=== PATIENT | female | born 1935 | race Hispanic/Latino ===

== ENCOUNTER 2018-01-23 07:51 | Day surgery (SDC) | payer MEDICARE ==
[~2018-01-23] VITALS: Ht 152.4 cm; Wt 51.7 kg
[~2018-01-23 07:51] MED LIST: ATOR10 PO; LEVO25TA9 PO; LISI1TAB11 PO
[2018-01-23 08:21] VITALS: BP 141/57
[2018-01-23 08:44] LABS: INR 0.93 (0.85-1.15); PARTIAL THROMBOPLASTIN TIME 31.7 SEC (26.3-35.5); PROTHROMBIN TIME 9.8 SEC (9.6-11.6)
[2018-01-23] MEDS ORDERED: SODIUM CHLORIDE 0.9% 1000ML 1,000 ML IV ONE (09:22)
[2018-01-23] MEDS ORDERED: FENTANYL CITRATE PF 50 MCG/1 ML 2ML VIAL ONE (11:27)
[2018-01-23] MEDS ORDERED: MIDAZOLAM HCL 1 MG/ML 2ML VIAL ONE (11:28)
[2018-01-23 12:17] VITALS: BP 134/48
[2018-01-23 12:48] VITALS: BP 105/54
[2018-01-23 13:36] VITALS: BP 143/57
[2018-01-23] MEDS ORDERED: LIDOCAINE HCL MPF 1% 5ML VIAL ONE (14:41)
== END 2018-01-23 14:00 | disposition home or self-care (01) ==
LOC: DAH 07:51 → RAH 07:51 → EDSTATUS 08:00 → RAH 14:00
PROVIDERS: ATTEND Family Medicine
DX: C34.12 Malignant neoplasm of upper lobe, left bronchus or lung (principal); E55.9 Vitamin D deficiency, unspecified; I10 Essential (primary) hypertension; I70.209 Unspecified atherosclerosis of native arteries of extremities, unspecified extremity; J43.9 Emphysema, unspecified; E03.9 Hypothyroidism, unspecified; Z79.899 Other long term (current) drug therapy; Z87.891 Personal history of nicotine dependence; Z98.890 Other specified postprocedural states; Z80.8 Family history of malignant neoplasm of other organs or systems; Z82.0 Family history of epilepsy and other diseases of the nervous system; Z88.0 Allergy status to penicillin; Z88.8 Allergy status to other drugs, medicaments and biological substances; Z86.79 Personal history of other diseases of the circulatory system
CPT/HCPCS: 32405; 36415; 77012; 85610; 85730; 88305; 88341; 88342; J3010; J3490; J7030; 99152; J2250

== ENCOUNTER → 2018-03-14 | Outpatient (CLI) | payer MEDICARE | END | disposition home or self-care (01) | LOC: SHCH 12:16 | PROVIDERS: ATTEND Internal Medicine Cardiovascular Disease | DX: I51.7 Cardiomegaly (principal); M19.90 Unspecified osteoarthritis, unspecified site | CPT/HCPCS: 93306 ==

== ENCOUNTER 2018-08-19 18:16 | Inpatient (IN) | payer MEDICARE | END 2018-08-19 23:23 | disposition left against medical advice (07) | LOC: EDH 18:16 → EDHIP 21:32 ==

== ENCOUNTER 2020-01-04 11:16 | Inpatient (IN) | payer MEDICARE, OTHER ==
[~2020-01-04] VITALS: Ht 154.9 cm; Wt 45.8 kg
[~2020-01-04 11:16] MED LIST changes: -LISI1TAB11 PO; +LISI1TAB51 PO
[2020-01-04 12:13] LABS: BASOPHILS % (AUTO) 0.3 % (0.0-5.0); EOSINOPHILS % (AUTO) 0.1 % (0.0-8.0); HEMATOCRIT 35.2 % (36-48); LYMPHOCYTES % (AUTO) 5.8 % (21.0-51.0); MEAN CORPUSCULAR HEMOGLOBIN 31.3 pg (27.0-33.0); MEAN CORPUSCULAR HGB CONC 34.7 g/dL (32.0-36.0); MEAN CORPUSCULAR VOLUME 90.3 fL (79-99); MONOCYTES % (AUTO) 3.1 % (3.0-13.0); NEUTROPHILS % (AUTO) 89.2 % (40.0-77.0); PLATELET COUNT (AUTO) 268 K/uL (130-400); RED CELL DISTRIBUTION WIDTH 12.4 % (11.0-15.5); WHITE BLOOD COUNT (AUTO) 11.1 K/uL (4.8-10.8)
[2020-01-04 12:14] LABS: ABG BASE EXCESS -0.8 mmol/L (-2.0-3.0); ABG HCO3 21.8 mmol/L (21.0-28.0); ABG OXYGEN SATURATION 74.5 % (95.0-99.0); ABG PCO2 31 mmHg (32-45)
[2020-01-04 12:25] LABS: CREATININE 1.2 mg/dL (0.5-1.5); POTASSIUM 3.8 mmol/L (3.5-5.1)
[2020-01-04 12:27] LABS: INR 0.95 (0.85-1.15); PARTIAL THROMBOPLASTIN TIME 29.4 SEC (26.3-35.5); PROTHROMBIN TIME 10.3 SEC (9.6-11.6)
[2020-01-04 12:29] LABS: ALBUMIN 2.8 g/dL (3.5-5.0); BILIRUBIN,TOTAL 0.9 mg/dL (0.2-1.0); TOTAL PROTEIN, SERUM 6.7 g/dL (6.0-8.3)
[2020-01-04 12:37] LABS: B-TYPE NATRIURETIC PEPTIDE 151 pg/mL (0-100)
[2020-01-04] MEDS: FUROSEMIDE 10 MG/ML 4ML VIAL IV SCH (14:00)
[2020-01-04] MEDS ORDERED: ONDANSETRON HCL 4 MG/2 ML VIAL IVP PRN (14:00)
[2020-01-04] MEDS ORDERED: HYDRALAZINE HCL 20 MG/ML VIAL IV PRN (14:00)
[2020-01-04] MEDS ORDERED: MAGNESIUM 2GM PREMIX 50ML 50 ML IV PRN (14:00)
[2020-01-04] MEDS ORDERED: ACETAMINOPHEN-CODEINE 300/30MG TAB PO PRN (14:00)
[2020-01-04] MEDS ORDERED: GLUCAGON 1MG KIT 1 MG ML IM PRN (14:00)
[2020-01-04] MEDS ORDERED: ALBUTEROL INHALER 90MCG/INH IH PRN (14:00)
[2020-01-04] MEDS ORDERED: FUROSEMIDE 10 MG/ML 4ML VIAL ONE (14:37)
[2020-01-04] MEDS ORDERED: FAMOTIDINE 20MG TAB 20 MG TAB ONE (14:37)
[2020-01-04 15:50] VITALS: BP 141/67
[2020-01-04] MEDS: INSULIN HUMULIN R 100 UNIT/ML 3ML SQ SCH ×2 (16:30→20:19)
[2020-01-04 20:23] VITALS: BP 108/50
[2020-01-04] MEDS: FAMOTIDINE 20MG TAB 20 MG TAB PO SCH (20:32)
[2020-01-04] MEDS ORDERED: ENOXAPARIN SODIUM 30 MG/0.3 ML SQ SCH (21:00)
[2020-01-05] VITALS (7 sets, daily range): BP systolic 113–127; BP diastolic 54–66
[2020-01-05 04:51] LABS: BASOPHILS % (AUTO) 0.2 % (0.0-5.0); EOSINOPHILS % (AUTO) 0.2 % (0.0-8.0); HEMATOCRIT 34.6 % (36-48); LYMPHOCYTES % (AUTO) 7.4 % (21.0-51.0); MEAN CORPUSCULAR HEMOGLOBIN 31.6 pg (27.0-33.0); MEAN CORPUSCULAR VOLUME 90.3 fL (79-99); MONOCYTES % (AUTO) 3.4 % (3.0-13.0); NEUTROPHILS % (AUTO) 86.9 % (40.0-77.0); PLATELET COUNT (AUTO) 275 K/uL (130-400); RED BLOOD CELL COUNT(AUTO) 3.83 MIL/uL (4.00-5.50); RED CELL DISTRIBUTION WIDTH 12.2 % (11.0-15.5); WHITE BLOOD COUNT (AUTO) 9.3 K/uL (4.8-10.8)
[2020-01-05 05:10] LABS: ALBUMIN 2.7 g/dL (3.5-5.0); BILIRUBIN,DIRECT 0.3 mg/dL (0.0-0.3); BILIRUBIN,TOTAL 0.9 mg/dL (0.2-1.0); CREATININE 1.3 mg/dL (0.5-1.5); PHOSPHORUS 3.5 mg/dL (2.5-4.9); POTASSIUM 3.4 mmol/L (3.5-5.1); TOTAL PROTEIN, SERUM 6.9 g/dL (6.0-8.3)
[2020-01-05 05:23] LABS: CRP QUANTITATIVE 280.2 mg/L (0.00-9.0)
[2020-01-05] MEDS: FUROSEMIDE 10 MG/ML 4ML VIAL IV SCH ×3 (06:30→16:06)
[2020-01-05] MEDS: INSULIN HUMULIN R 100 UNIT/ML 3ML SQ SCH ×4 (06:35→20:17)
[2020-01-05] MEDS ORDERED: PHARMACY COMMUNICATION**REMDESIVIR MISC SCH (07:45)
[2020-01-05] MEDS: FAMOTIDINE 20MG TAB 20 MG TAB PO SCH ×2 (08:33→20:13)
[2020-01-05] MEDS: DEXAMETHASONE SOD PHOSPHATE 4 MG/ML 1ML VIAL IVP SCH (08:33)
[2020-01-05] MEDS: ENOXAPARIN SODIUM 40 MG/0.4 ML SYRINGE SQ SCH ×2 (08:34→20:13)
[2020-01-05] MEDS ORDERED: SODIUM CHLORIDE 0.9% 100 ML IV ONE (13:02)
--- NOTE | 2020-01-05 17:21 | NUR ---
cm note spoke to pts son, zachary tillman, states pt resides alone at home. is independent with adls/ambulation. no dme. no home services. states pt has been weaker lately, and may need a walker, but he states plan is for dc home, he can make arrangements for him to stay with pt until stable, and is open to rehab if Md recommends. Addendum: 01/05/20 at 1727 by SHANKAR CHILDERS CM Amended: Links added.
[2020-01-05] MEDS ORDERED: SODIUM CHLORIDE 0.9% 250 ML IV ONE (20:05)
[2020-01-05] MEDS ORDERED: LIDOCAINE HCL-MPF 1% 2ML VIAL IV PRN (20:15)
[2020-01-05] MEDS ORDERED: POTASSIUM CHLORIDE 20MEQ/100ML 100 ML IV PRN (20:15)
[2020-01-05] MEDS ORDERED: POTASSIUM CHLORIDE 20 MEQ ERTAB PO PRN (20:15)
[2020-01-06] MEDS: FUROSEMIDE 10 MG/ML 4ML VIAL IV SCH (01:16)
[2020-01-06 03:00] VITALS: BP 134/72
[2020-01-06] MEDS: INSULIN HUMULIN R 100 UNIT/ML 3ML SQ SCH ×4 (05:57→19:54)
[2020-01-06] MEDS: POTASSIUM CHLORIDE 10% ELIXIR 20 MEQ/15 ML UDCUP PO PRN (05:58)
[2020-01-06 06:31] LABS: BASOPHILS % (AUTO) 0.2 % (0.0-5.0); HEMATOCRIT 36.5 % (36-48); LYMPHOCYTES % (AUTO) 6.7 % (21.0-51.0); MEAN CORPUSCULAR HEMOGLOBIN 31.5 pg (27.0-33.0); MEAN CORPUSCULAR HGB CONC 35.1 g/dL (32.0-36.0); MEAN CORPUSCULAR VOLUME 89.9 fL (79-99); MONOCYTES % (AUTO) 3.3 % (3.0-13.0); NEUTROPHILS % (AUTO) 88.2 % (40.0-77.0); PLATELET COUNT (AUTO) 350 K/uL (130-400); RED BLOOD CELL COUNT(AUTO) 4.06 MIL/uL (4.00-5.50); RED CELL DISTRIBUTION WIDTH 11.9 % (11.0-15.5); WHITE BLOOD COUNT (AUTO) 8.5 K/uL (4.8-10.8)
[2020-01-06 07:12] LABS: BILIRUBIN,TOTAL 0.8 mg/dL (0.2-1.0); CREATININE 1.4 mg/dL (0.5-1.5); POTASSIUM 4.3 mmol/L (3.5-5.1); TOTAL PROTEIN, SERUM 7.5 g/dL (6.0-8.3)
[2020-01-06 08:09] VITALS: BP 136/73
[2020-01-06 08:18] LABS: ABG HCO3 23.8 mmol/L (21.0-28.0); ABG OXYGEN SATURATION 96.8 % (95.0-99.0); ABG PCO2 33 mmHg (32-45)
[2020-01-06] MEDS: FAMOTIDINE 20MG TAB 20 MG TAB PO SCH ×2 (08:27→19:57)
[2020-01-06] MEDS: DEXAMETHASONE SOD PHOSPHATE 4 MG/ML 1ML VIAL IVP SCH (08:27)
[2020-01-06] MEDS: ENOXAPARIN SODIUM 40 MG/0.4 ML SYRINGE SQ SCH ×2 (08:28→19:57)
--- NOTE | 2020-01-06 09:40 | NUR ---
MARTHA SONOGRAPHER AT BEDSIDE, DISCUSSION W/ PATIENT ABOUT CODE STATUS, PT. STATES DOES NOT WANT TO BE CODED, DNR INITIATED AND SIGNED BY PATIENT ORDER PLACED MARTHA CALLED SON TO MAKE AWARE
[2020-01-06 11:58] VITALS: BP 102/58
--- NOTE | 2020-01-06 14:19 | NUR ---
PHYSICAL THERAPY HERE STOOD PATIENT AND GOT UP TO CHAIR, PT STOOD WELL ON HER OWN AND MOVED TO CHAIR. SATS 99%
--- NOTE | 2020-01-06 14:51 | NUR ---
PATIENT ASKED TO GO BACK TO BED, ASSISTED BACK TO BED, LINENS WERE CHANGED BY SOFTWARE TOOLS ENGINEER WHILE UP TO CHAIR. PATIENT TOLERATED WELL.
[2020-01-06 15:46] VITALS: BP 117/64
[2020-01-06 19:40] VITALS: BP 131/50
[2020-01-06] MEDS: ALPRAZOLAM 0.25 MG TABLET PO PRN (22:00)
[2020-01-06 23:43] VITALS: BP 119/60
[2020-01-07 03:28] VITALS: BP 129/74
[2020-01-07 05:10] LABS: BASOPHILS % (AUTO) 0.3 % (0.0-5.0); HEMATOCRIT 36.5 % (36-48); LYMPHOCYTES % (AUTO) 6.6 % (21.0-51.0); MEAN CORPUSCULAR HEMOGLOBIN 30.8 pg (27.0-33.0); MEAN CORPUSCULAR VOLUME 90.8 fL (79-99); MONOCYTES % (AUTO) 2.4 % (3.0-13.0); NEUTROPHILS % (AUTO) 88.7 % (40.0-77.0); PLATELET COUNT (AUTO) 403 K/uL (130-400); RED BLOOD CELL COUNT(AUTO) 4.02 MIL/uL (4.00-5.50); RED CELL DISTRIBUTION WIDTH 11.9 % (11.0-15.5); WHITE BLOOD COUNT (AUTO) 11.2 K/uL (4.8-10.8)
[2020-01-07 05:39] LABS: ALBUMIN 2.8 g/dL (3.5-5.0); BILIRUBIN,TOTAL 0.7 mg/dL (0.2-1.0); CREATININE 1.3 mg/dL (0.5-1.5); MAGNESIUM 2.3 mg/dL (1.80-2.40); PHOSPHORUS 3.7 mg/dL (2.5-4.9); POTASSIUM 3.9 mmol/L (3.5-5.1); TOTAL PROTEIN, SERUM 7.1 g/dL (6.0-8.3)
[2020-01-07] MEDS: INSULIN HUMULIN R 100 UNIT/ML 3ML SQ SCH ×4 (06:30→20:00)
[2020-01-07] MEDS: FAMOTIDINE 20MG TAB 20 MG TAB PO SCH ×2 (08:13→20:16)
[2020-01-07] MEDS: DEXAMETHASONE SOD PHOSPHATE 4 MG/ML 1ML VIAL IVP SCH (08:13)
[2020-01-07] MEDS: ENOXAPARIN SODIUM 40 MG/0.4 ML SYRINGE SQ SCH ×2 (08:13→20:16)
[2020-01-07 09:59] VITALS: BP 90/43
[2020-01-07 12:08] VITALS: BP 130/55
[2020-01-07 17:25] VITALS: BP_SYST 107; BP_SYST 117; BP_DIAS 62; BP_DIAS 66
[2020-01-07 19:51] VITALS: BP 102/64
[2020-01-07 23:38] VITALS: BP 124/71
[2020-01-08 04:26] VITALS: BP 124/46
[2020-01-08 05:25] LABS: BASOPHILS % (AUTO) 0.1 % (0.0-5.0); EOSINOPHILS % (AUTO) 0.3 % (0.0-8.0); HEMATOCRIT 36.5 % (36-48); LYMPHOCYTES % (AUTO) 5.9 % (21.0-51.0); MEAN CORPUSCULAR HEMOGLOBIN 30.8 pg (27.0-33.0); MEAN CORPUSCULAR HGB CONC 33.7 g/dL (32.0-36.0); MEAN CORPUSCULAR VOLUME 91.5 fL (79-99); MONOCYTES % (AUTO) 1.5 % (3.0-13.0); NEUTROPHILS % (AUTO) 90.6 % (40.0-77.0); PLATELET COUNT (AUTO) 405 K/uL (130-400); RED BLOOD CELL COUNT(AUTO) 3.99 MIL/uL (4.00-5.50); RED CELL DISTRIBUTION WIDTH 11.9 % (11.0-15.5); WHITE BLOOD COUNT (AUTO) 10.1 K/uL (4.8-10.8)
[2020-01-08] MEDS: INSULIN HUMULIN R 100 UNIT/ML 3ML SQ SCH ×4 (05:28→20:36)
[2020-01-08 05:50] LABS: ALBUMIN 2.9 g/dL (3.5-5.0); BILIRUBIN,TOTAL 0.8 mg/dL (0.2-1.0); CREATININE 1.2 mg/dL (0.5-1.5); MAGNESIUM 2.3 mg/dL (1.80-2.40); POTASSIUM 3.7 mmol/L (3.5-5.1)
[2020-01-08] MEDS: ENOXAPARIN SODIUM 40 MG/0.4 ML SYRINGE SQ SCH ×2 (08:20→20:36)
[2020-01-08] MEDS: DEXAMETHASONE SOD PHOSPHATE 4 MG/ML 1ML VIAL IVP SCH (08:20)
[2020-01-08] MEDS: FAMOTIDINE 20MG TAB 20 MG TAB PO SCH ×2 (08:20→20:36)
[2020-01-08 08:23] LABS: ABG BASE EXCESS 1.5 mmol/L (-2.0-3.0); ABG HCO3 24.6 mmol/L (21.0-28.0); ABG OXYGEN SATURATION 88.1 % (95.0-99.0); ABG PCO2 35 mmHg (32-45)
[2020-01-08 09:43] VITALS: BP 120/60
[2020-01-08 12:40] VITALS: BP 132/65
--- NOTE | 2020-01-08 12:55 | NUR ---
DC PLAN VISITED WITH PATIENT. SPOKE TO PATIENT REGARDING DC PLAN. GAVE OPTION OF SNF OR [facility] SAID NO ONLY WANTS TO GO HOME. CURRENTLY THE O2 INCREASED TO 10L NRB. Addendum: 01/08/20 at 1314 by JANY SELLERS RN CM Amended: Links added.
[2020-01-08] MEDS ORDERED: FUROSEMIDE 10 MG/ML 2ML VIAL IV SCH (14:00)
[2020-01-08] MEDS ORDERED: IOHEXOL-350 75 ML VIAL IV ONE (14:52)
[2020-01-08 16:50] VITALS: BP 124/69
[2020-01-08 20:11] VITALS: BP 115/62
[2020-01-08] MEDS: ATORVASTATIN CALCIUM 10 MG TABLET PO SCH (20:36)
[2020-01-08] MEDS: ACETYLCYSTEINE 600 MG CAPSULE PO SCH (20:36)
[2020-01-08 23:39] VITALS: BP 110/57
[2020-01-09 03:36] VITALS: BP 126/66
[2020-01-09] MEDS: AZTREONAM 1 GM VIAL IVP SCH ×3 (04:00→19:26)
[2020-01-09 04:59] LABS: BASOPHILS % (AUTO) 0.2 % (0.0-5.0); EOSINOPHILS % (AUTO) 0.2 % (0.0-8.0); HEMATOCRIT 36.1 % (36-48); LYMPHOCYTES % (AUTO) 4.1 % (21.0-51.0); MEAN CORPUSCULAR HEMOGLOBIN 30.9 pg (27.0-33.0); MEAN CORPUSCULAR HGB CONC 34.1 g/dL (32.0-36.0); MEAN CORPUSCULAR VOLUME 90.7 fL (79-99); MONOCYTES % (AUTO) 0.9 % (3.0-13.0); NEUTROPHILS % (AUTO) 92.6 % (40.0-77.0); PLATELET COUNT (AUTO) 392 K/uL (130-400); RED BLOOD CELL COUNT(AUTO) 3.98 MIL/uL (4.00-5.50); RED CELL DISTRIBUTION WIDTH 11.8 % (11.0-15.5); WHITE BLOOD COUNT (AUTO) 11.6 K/uL (4.8-10.8)
[2020-01-09 05:36] LABS: B-TYPE NATRIURETIC PEPTIDE 125 pg/mL (0-100)
[2020-01-09 05:57] LABS: ALBUMIN 2.8 g/dL (3.5-5.0); BILIRUBIN,TOTAL 0.8 mg/dL (0.2-1.0); CREATININE 1.2 mg/dL (0.5-1.5); MAGNESIUM 2.3 mg/dL (1.80-2.40); POTASSIUM 3.5 mmol/L (3.5-5.1); TOTAL PROTEIN, SERUM 7.2 g/dL (6.0-8.3)
[2020-01-09] MEDS: INSULIN HUMULIN R 100 UNIT/ML 3ML SQ SCH ×4 (06:01→20:19)
[2020-01-09] MEDS: LEVOTHYROXINE 25 MCG TABLET PO SCH (06:39)
[2020-01-09] MEDS: POTASSIUM CHLORIDE 10% ELIXIR 20 MEQ/15 ML UDCUP PO PRN (06:39)
[2020-01-09 06:54] LABS: ABG BASE EXCESS -8.2 mmol/L (-2.0-3.0); ABG HCO3 14.2 mmol/L (21.0-28.0); ABG OXYGEN SATURATION 90.1 % (95.0-99.0); ABG PCO2 23 mmHg (32-45)
[2020-01-09] MEDS: ENOXAPARIN SODIUM 40 MG/0.4 ML SYRINGE SQ SCH ×2 (08:25→20:19)
[2020-01-09] MEDS: DEXAMETHASONE SOD PHOSPHATE 4 MG/ML 1ML VIAL IVP SCH (08:25)
[2020-01-09] MEDS: FAMOTIDINE 20MG TAB 20 MG TAB PO SCH ×2 (08:25→20:19)
[2020-01-09] MEDS: ACETYLCYSTEINE 600 MG CAPSULE PO SCH ×2 (08:25→20:19)
[2020-01-09 08:48] VITALS: BP 117/77
[2020-01-09 12:04] VITALS: BP 142/57
[2020-01-09 16:29] VITALS: BP 108/54
[2020-01-09] MEDS ORDERED: VANCOMYCIN PROTOCOL PER PHARMACY IV SCH (19:00)
[2020-01-09] MEDS ORDERED: AZITHROMYCIN 500MG+NS 250ML 250 ML IV SCH (19:00)
[2020-01-09] MEDS ORDERED: COMPOUND IV REFRIGERATED 1 EACH IVSOLN MISC PRN (19:30)
[2020-01-09] MEDS ORDERED: VANCOMYCIN 1.25 GM in SODIUM CHLORIDE 0.9% 250 ML IV ONE (19:30)
[2020-01-09] MEDS ORDERED: AZTREONAM 2 GM VIAL IVP ONE (20:00)
[2020-01-09] MEDS: ATORVASTATIN CALCIUM 10 MG TABLET PO SCH (20:19)
[2020-01-09 20:59] VITALS: BP 127/63
[2020-01-09 23:15] VITALS: BP 136/68
[2020-01-10] MEDS: AZTREONAM 1 GM VIAL IVP SCH ×3 (03:03→20:54)
[2020-01-10 03:50] VITALS: BP 127/66
[2020-01-10 04:53] LABS: BASOPHILS % (AUTO) 0.2 % (0.0-5.0); EOSINOPHILS % (AUTO) 0.2 % (0.0-8.0); HEMATOCRIT 35.8 % (36-48); LYMPHOCYTES % (AUTO) 5.4 % (21.0-51.0); MEAN CORPUSCULAR HEMOGLOBIN 30.8 pg (27.0-33.0); MEAN CORPUSCULAR HGB CONC 33.5 g/dL (32.0-36.0); MONOCYTES % (AUTO) 1.7 % (3.0-13.0); NEUTROPHILS % (AUTO) 89.9 % (40.0-77.0); PLATELET COUNT (AUTO) 397 K/uL (130-400); RED BLOOD CELL COUNT(AUTO) 3.89 MIL/uL (4.00-5.50); RED CELL DISTRIBUTION WIDTH 12.1 % (11.0-15.5); WHITE BLOOD COUNT (AUTO) 12.5 K/uL (4.8-10.8)
[2020-01-10 05:09] LABS: CREATININE 1.3 mg/dL (0.5-1.5); MAGNESIUM 2.5 mg/dL (1.80-2.40)
[2020-01-10] MEDS: DEXTROSE 50%-WATER 50 ML DISP.SYRIN IV PRN (05:12)
[2020-01-10 05:14] LABS: B-TYPE NATRIURETIC PEPTIDE 88 pg/mL (0-100)
[2020-01-10] MEDS: INSULIN HUMULIN R 100 UNIT/ML 3ML SQ SCH ×4 (05:37→20:56)
[2020-01-10] MEDS: LEVOTHYROXINE 25 MCG TABLET PO SCH (05:37)
[2020-01-10] MEDS: ACETYLCYSTEINE 600 MG CAPSULE PO SCH (09:31)
[2020-01-10] MEDS: DEXAMETHASONE SOD PHOSPHATE 4 MG/ML 1ML VIAL IVP SCH (09:31)
[2020-01-10] MEDS: FAMOTIDINE 20MG TAB 20 MG TAB PO SCH ×2 (09:31→20:54)
[2020-01-10] MEDS: ENOXAPARIN SODIUM 40 MG/0.4 ML SYRINGE SQ SCH ×2 (09:32→20:55)
[2020-01-10 10:08] VITALS: BP 134/65
[2020-01-10] MEDS ORDERED: VANCOMYCIN 1GM+NS 250ML IV SCH (17:00)
[2020-01-10 17:06] VITALS: BP 129/71
[2020-01-10] MEDS: ATORVASTATIN CALCIUM 10 MG TABLET PO SCH (20:54)
[2020-01-10 20:57] VITALS: BP 152/69
[2020-01-10 23:54] VITALS: BP 137/65
[2020-01-11 04:07] LABS: BASOPHILS % (AUTO) 0.2 % (0.0-5.0); EOSINOPHILS % (AUTO) 0.2 % (0.0-8.0); HEMATOCRIT 36.8 % (36-48); LYMPHOCYTES % (AUTO) 4.9 % (21.0-51.0); MEAN CORPUSCULAR HGB CONC 33.2 g/dL (32.0-36.0); MEAN CORPUSCULAR VOLUME 93.6 fL (79-99); NEUTROPHILS % (AUTO) 90.9 % (40.0-77.0); PLATELET COUNT (AUTO) 386 K/uL (130-400); RED BLOOD CELL COUNT(AUTO) 3.93 MIL/uL (4.00-5.50); RED CELL DISTRIBUTION WIDTH 11.9 % (11.0-15.5); WHITE BLOOD COUNT (AUTO) 12.6 K/uL (4.8-10.8)
[2020-01-11 04:13] VITALS: BP 144/71
[2020-01-11] MEDS: AZTREONAM 1 GM VIAL IVP SCH ×3 (04:22→21:35)
[2020-01-11 04:26] LABS: MAGNESIUM 2.2 mg/dL (1.80-2.40)
[2020-01-11] MEDS: INSULIN HUMULIN R 100 UNIT/ML 3ML SQ SCH ×4 (05:35→21:00)
[2020-01-11] MEDS: DEXTROSE 50%-WATER 50 ML DISP.SYRIN IV PRN (05:44)
[2020-01-11 07:50] VITALS: BP 140/67
[2020-01-11] MEDS: DEXAMETHASONE SOD PHOSPHATE 4 MG/ML 1ML VIAL IVP SCH (09:30)
[2020-01-11] MEDS: LEVOTHYROXINE 25 MCG TABLET PO SCH (09:30)
[2020-01-11] MEDS: FAMOTIDINE 20MG TAB 20 MG TAB PO SCH ×2 (09:34→21:35)
[2020-01-11] MEDS: ENOXAPARIN SODIUM 40 MG/0.4 ML SYRINGE SQ SCH ×2 (09:35→21:36)
--- NOTE | 2020-01-11 10:32 | NUR ---
RD NOTIFICATION PT'S DX IS OF HYPOXEMIC RESPIRATORY FAILURE, POSITIVE FOR COVID-19. PT'S CURRENT DIET ORDER IS HEART HEALTHY WITH NO MODIFIERS. SUPPLEMENTATION ORDER WAS NOT RECEIVED THEREFORE PT HAS NOT BEEN RECEIVING ENSURE SUPPLEMENTATION. WILL MODIFY THE ORDER TODAY 01/11/20. PT'S PO INTAKE IS <25%, UNKNOWN LAST BOWEL MOVEMENT. LATEST LABS INCLUDE: ALBUMIN 2.8 (L), CRP 280.2 (H), BG 159 (H), GFR 25 (L), CREATININE 2.0 (H). PT'S BMI IS OF 20, WHICH IS LOW FOR HER AGE GROUP. RD WILL CONTINUE TO MONITOR PO INTAKE AND LABS. CONTACT DIETARY OFFICE FOR ANY NUTRITIONAL CONCERNS. Addendum: 01/11/20 at [address] Amended: Links added.
[2020-01-11 11:33] VITALS: BP 143/64
[2020-01-11] MEDS ORDERED: SODIUM CHLORIDE 0.9% 1000ML 250 ML IV SCH (12:30)
[2020-01-11] MEDS ORDERED: LACTULOSE 20 GM/30 ML UDCUP PO PRN (15:45)
[2020-01-11 16:31] VITALS: BP 127/64
[2020-01-11 21:01] VITALS: BP 104/49
[2020-01-11] MEDS: ATORVASTATIN CALCIUM 10 MG TABLET PO SCH (21:35)
[2020-01-11] MEDS: DOCUSATE SODIUM 100 MG CAP PO SCH (21:35)
[2020-01-12 00:15] VITALS: BP 145/71
[2020-01-12] MEDS: AZTREONAM 1 GM VIAL IVP SCH ×3 (03:22→20:06)
[2020-01-12 04:24] LABS: BASOPHILS % (AUTO) 0.1 % (0.0-5.0); EOSINOPHILS % (AUTO) 0.7 % (0.0-8.0); HEMATOCRIT 36.9 % (36-48); LYMPHOCYTES % (AUTO) 3.7 % (21.0-51.0); MEAN CORPUSCULAR HGB CONC 33.3 g/dL (32.0-36.0); MEAN CORPUSCULAR VOLUME 92.9 fL (79-99); MONOCYTES % (AUTO) 1.3 % (3.0-13.0); NEUTROPHILS % (AUTO) 92.4 % (40.0-77.0); PLATELET COUNT (AUTO) 392 K/uL (130-400); RED BLOOD CELL COUNT(AUTO) 3.97 MIL/uL (4.00-5.50); WHITE BLOOD COUNT (AUTO) 13.9 K/uL (4.8-10.8)
[2020-01-12 04:35] VITALS: BP 144/58
[2020-01-12 04:42] LABS: ALBUMIN 2.4 g/dL (3.5-5.0); BILIRUBIN,TOTAL 0.5 mg/dL (0.2-1.0); POTASSIUM 4.2 mmol/L (3.5-5.1); TOTAL PROTEIN, SERUM 6.9 g/dL (6.0-8.3)
[2020-01-12] MEDS: LEVOTHYROXINE 25 MCG TABLET PO SCH (05:21)
[2020-01-12] MEDS: INSULIN HUMULIN R 100 UNIT/ML 3ML SQ SCH ×4 (05:30→20:11)
[2020-01-12 07:56] VITALS: BP 106/53
[2020-01-12] MEDS: DEXAMETHASONE SOD PHOSPHATE 4 MG/ML 1ML VIAL IVP SCH (09:01)
[2020-01-12] MEDS: FAMOTIDINE 20MG TAB 20 MG TAB PO SCH ×2 (09:01→20:06)
[2020-01-12] MEDS: DOCUSATE SODIUM 100 MG CAP PO SCH ×2 (09:01→20:06)
[2020-01-12] MEDS: ENOXAPARIN SODIUM 40 MG/0.4 ML SYRINGE SQ SCH ×2 (09:02→20:06)
[2020-01-12 09:46] LABS: ABG BASE EXCESS -2.2 mmol/L (-2.0-3.0); ABG PCO2 32 mmHg (32-45)
[2020-01-12 12:21] VITALS: BP 121/63
[2020-01-12 16:25] VITALS: BP 137/68
[2020-01-12] MEDS: ATORVASTATIN CALCIUM 10 MG TABLET PO SCH (20:06)
[2020-01-12 21:33] VITALS: BP 127/56
[2020-01-13] VITALS (7 sets, daily range): BP systolic 102–155; BP diastolic 54–80
[2020-01-13 03:43] LABS: CREATININE 1.1 mg/dL (0.5-1.5); POTASSIUM 4.7 mmol/L (3.5-5.1)
[2020-01-13] MEDS: AZTREONAM 1 GM VIAL IVP SCH ×3 (04:34→21:41)
[2020-01-13] MEDS: INSULIN HUMULIN R 100 UNIT/ML 3ML SQ SCH ×4 (06:12→21:00)
[2020-01-13] MEDS: LEVOTHYROXINE 25 MCG TABLET PO SCH (07:30)
[2020-01-13] MEDS: FAMOTIDINE 20MG TAB 20 MG TAB PO SCH ×2 (09:00→21:45)
[2020-01-13] MEDS: DOCUSATE SODIUM 100 MG CAP PO SCH ×2 (09:01→21:45)
[2020-01-13] MEDS: ENOXAPARIN SODIUM 40 MG/0.4 ML SYRINGE SQ SCH ×2 (09:01→21:45)
[2020-01-13] MEDS: DEXAMETHASONE SOD PHOSPHATE 4 MG/ML 1ML VIAL IVP SCH (09:01)
[2020-01-13] MEDS: ATORVASTATIN CALCIUM 10 MG TABLET PO SCH (21:45)
[2020-01-14 04:13] LABS: BASOPHILS % (AUTO) 0.2 % (0.0-5.0); EOSINOPHILS % (AUTO) 0.1 % (0.0-8.0); HEMATOCRIT 37.4 % (36-48); LYMPHOCYTES % (AUTO) 2.8 % (21.0-51.0); MEAN CORPUSCULAR HEMOGLOBIN 31.3 pg (27.0-33.0); MEAN CORPUSCULAR HGB CONC 33.2 g/dL (32.0-36.0); MEAN CORPUSCULAR VOLUME 94.4 fL (79-99); MONOCYTES % (AUTO) 2.5 % (3.0-13.0); PLATELET COUNT (AUTO) 333 K/uL (130-400); RED BLOOD CELL COUNT(AUTO) 3.96 MIL/uL (4.00-5.50); RED CELL DISTRIBUTION WIDTH 12.3 % (11.0-15.5); WHITE BLOOD COUNT (AUTO) 19.4 K/uL (4.8-10.8)
[2020-01-14] MEDS: AZTREONAM 1 GM VIAL IVP SCH ×3 (04:21→21:56)
[2020-01-14 04:22] LABS: CREATININE 1.1 mg/dL (0.5-1.5); POTASSIUM 5.1 mmol/L (3.5-5.1)
[2020-01-14 04:35] VITALS: BP 126/63
[2020-01-14 04:42] LABS: B-TYPE NATRIURETIC PEPTIDE 124 pg/mL (0-100)
[2020-01-14] MEDS: INSULIN HUMULIN R 100 UNIT/ML 3ML SQ SCH ×4 (07:00→21:00)
[2020-01-14] MEDS: LEVOTHYROXINE 25 MCG TABLET PO SCH (07:00)
[2020-01-14] MEDS: DEXAMETHASONE SOD PHOSPHATE 4 MG/ML 1ML VIAL IVP SCH (08:13)
[2020-01-14] MEDS: DOCUSATE SODIUM 100 MG CAP PO SCH ×2 (08:14→20:39)
[2020-01-14] MEDS: FAMOTIDINE 20MG TAB 20 MG TAB PO SCH ×2 (08:14→20:39)
[2020-01-14] MEDS: ENOXAPARIN SODIUM 40 MG/0.4 ML SYRINGE SQ SCH ×2 (08:16→20:39)
[2020-01-14 09:23] VITALS: BP 146/67
--- NOTE | 2020-01-14 10:08 | NUR ---
RD NOTIFICATION SPOKE TO RN TODAY 01/14/20. PT IS TOLERATING ENSURE HOWEVER NOT CONSUMING DIET ADEQUATELY. THEREFORE WILL SEND TWO ENSURE BOTTLES PER MEAL TO INCREASE PO INTAKE. PT'S LAST BOWEL MOVEMENT WAS 01/14/20. PT WAS TRANSITIONED TO NASAL CANNULA PER RN. RD WILL CONTINUE TO MONITOR PO INTAKE AND HAVE OPEN COMMUNICATION WITH STAFF. CONTACT RD FOR ANY NUTRITIONAL CONCERNS THANK YOU. Addendum: 01/14/20 at [address] Amended: Links added.
[2020-01-14 13:22] VITALS: BP 125/63
[2020-01-14 16:51] VITALS: BP 122/74
[2020-01-14 20:32] VITALS: BP 125/71
[2020-01-14] MEDS: ATORVASTATIN CALCIUM 10 MG TABLET PO SCH (20:39)
[2020-01-14 23:58] VITALS: BP 124/82
[2020-01-15 03:53] VITALS: BP 131/70
[2020-01-15 04:47] LABS: ALBUMIN 2.1 g/dL (3.5-5.0); BILIRUBIN,TOTAL 0.4 mg/dL (0.2-1.0); CREATININE 1.1 mg/dL (0.5-1.5); POTASSIUM 4.3 mmol/L (3.5-5.1); TOTAL PROTEIN, SERUM 7.1 g/dL (6.0-8.3)
[2020-01-15] MEDS: AZTREONAM 1 GM VIAL IVP SCH ×3 (05:47→20:00)
[2020-01-15] MEDS: LEVOTHYROXINE 25 MCG TABLET PO SCH (06:15)
[2020-01-15] MEDS: INSULIN HUMULIN R 100 UNIT/ML 3ML SQ SCH ×4 (06:44→21:00)
[2020-01-15] MEDS: FAMOTIDINE 20MG TAB 20 MG TAB PO SCH ×2 (08:19→21:00)
[2020-01-15] MEDS: DOCUSATE SODIUM 100 MG CAP PO SCH ×2 (08:19→20:59)
[2020-01-15] MEDS: ENOXAPARIN SODIUM 40 MG/0.4 ML SYRINGE SQ SCH ×2 (08:20→21:01)
[2020-01-15 09:15] VITALS: BP 115/57
[2020-01-15 12:02] VITALS: BP 123/67
[2020-01-15] MEDS: ALPRAZOLAM 0.25 MG TABLET PO PRN (15:25)
[2020-01-15 17:30] VITALS: BP 110/54
[2020-01-15 20:27] VITALS: BP 110/49
[2020-01-15] MEDS: ATORVASTATIN CALCIUM 10 MG TABLET PO SCH (21:00)
[2020-01-15 23:45] VITALS: BP 103/54
[2020-01-16] MEDS: AZTREONAM 1 GM VIAL IVP SCH ×3 (03:44→20:45)
[2020-01-16 04:11] VITALS: BP 122/77
[2020-01-16] MEDS: INSULIN HUMULIN R 100 UNIT/ML 3ML SQ SCH ×4 (05:50→20:45)
[2020-01-16] MEDS: LEVOTHYROXINE 25 MCG TABLET PO SCH (05:50)
[2020-01-16 08:00] VITALS: BP 123/70
--- NOTE | 2020-01-16 10:35 | NUR ---
RD UPDATE PT IS CURRENTLY ON A HEART HEALTHY DIET, WITH 2X ENSURE TID. PT IS HAVING POOR APPETITE. PT IS CONSUMING ONLY ORAL SUPPLEMENTS. PER RN, RD WILL DECREASE ENSURE TO 1X TID DUE TO PT HAVING 3 BOTTLES IN THE ROOM. LAST BOWEL MOVEMENT WAS 01/14/20. RECENT LABS: WBC 19.4, RBC 3.96, RANDOM BG 86, WHOLE BG 96, FERRITIN 3253, ALB 2.1, MG 3.00. RD RECOMMENDATION: CONSIDER ALTERNATE NUTRITION/CALORIC MEANS IF PO INTAKE CONTINUES TO DECLINE. RD WILL CONTINUE TO MONITOR PO INTAKE, AND PT STATUS. Addendum: 01/16/20 at [address] Amended: Links added.
[2020-01-16] MEDS: DOCUSATE SODIUM 100 MG CAP PO SCH ×2 (10:39→20:45)
[2020-01-16] MEDS: FAMOTIDINE 20MG TAB 20 MG TAB PO SCH ×2 (10:39→20:45)
[2020-01-16] MEDS: ENOXAPARIN SODIUM 40 MG/0.4 ML SYRINGE SQ SCH ×2 (10:40→20:45)
[2020-01-16 12:00] VITALS: BP 136/70
[2020-01-16 12:13] LABS: ABG BASE EXCESS 0.8 mmol/L (-2.0-3.0); ABG HCO3 24.2 mmol/L (21.0-28.0); ABG OXYGEN SATURATION 80.8 % (95.0-99.0); ABG PCO2 35 mmHg (32-45)
--- NOTE | 2020-01-16 13:33 | NUR ---
Rounding 0800: Pt observed in room. On high flow non rebreather. O2 Sat 83-85% on non -rebreather with accessory muscle use. Pt repositioned for comfort. 0900: Pt repeatedly removing non-rebreather despite reiteration to keep mask on. 1000: Requested RT to add NC O2 with non rebreather due to pt repeatedly removing mask and de-satting. 1100: Geeta PILL MAKER by bedside for assessment. Reported pts condition and pt 02 Sat remaining 83%-88%. Pt tachypneic. Orders for ABG and Bipap 1150: RT by bedside for ABG and Bipap. Pt tolerating Bipap. 87% - 89% o2 Sat. 1330 - Dr Fair and Geeta PILL MAKER by bedside for assessment. Dr Fair speaking with family in regards to comfort measure. Family agreeable to comfort measures and DNR/DNI order. Per Dr Fair no blood draw to be drawn on pt, pt to remain on bipap, and maintain pt on comfort measures. 1350: Pt tolerating bipap. Pt positioned in Prone. O2 Sat 89% at this time.
[2020-01-16] MEDS ORDERED: MORPHINE SULFATE 2 MG/ML 1ML SYG IVP PRN (14:45)
[2020-01-16 16:00] VITALS: BP 126/62
--- NOTE | 2020-01-16 18:06 | NUR ---
BIPAP Pt tolerating BiPap. Able to make needs know, requests water and bedpan intermittently. O2 Sat 85-90% on Bipap /.
[2020-01-16] MEDS: ATORVASTATIN CALCIUM 10 MG TABLET PO SCH (20:45)
[2020-01-16 21:09] VITALS: BP 124/62
[2020-01-17] VITALS (7 sets, daily range): BP systolic 103–136; BP diastolic 58–75
[2020-01-17] MEDS: LORAZEPAM 2 MG/ML 1 ML VIAL IVP PRN ×3 (02:00→20:07)
[2020-01-17] MEDS: AZTREONAM 1 GM VIAL IVP SCH ×3 (03:07→20:07)
[2020-01-17] MEDS: LEVOTHYROXINE 25 MCG TABLET PO SCH (05:10)
[2020-01-17] MEDS: INSULIN HUMULIN R 100 UNIT/ML 3ML SQ SCH ×4 (05:41→20:31)
[2020-01-17 06:25] LABS: BASOPHILS % (AUTO) 0.2 % (0.0-5.0); EOSINOPHILS % (AUTO) 0.9 % (0.0-8.0); HEMATOCRIT 38.4 % (36-48); LYMPHOCYTES % (AUTO) 3.1 % (21.0-51.0); MEAN CORPUSCULAR HEMOGLOBIN 31.1 pg (27.0-33.0); MEAN CORPUSCULAR VOLUME 97.2 fL (79-99); MONOCYTES % (AUTO) 2.4 % (3.0-13.0); NEUTROPHILS % (AUTO) 91.9 % (40.0-77.0); PLATELET COUNT (AUTO) 320 K/uL (130-400); RED BLOOD CELL COUNT(AUTO) 3.95 MIL/uL (4.00-5.50); RED CELL DISTRIBUTION WIDTH 13.1 % (11.0-15.5); WHITE BLOOD COUNT (AUTO) 17.9 K/uL (4.8-10.8)
[2020-01-17 06:39] LABS: BILIRUBIN,TOTAL 0.3 mg/dL (0.2-1.0); CREATININE 1.5 mg/dL (0.5-1.5); POTASSIUM 3.9 mmol/L (3.5-5.1); TOTAL PROTEIN, SERUM 7.2 g/dL (6.0-8.3)
[2020-01-17] MEDS: DOCUSATE SODIUM 100 MG CAP PO SCH ×3 (08:51→20:08)
[2020-01-17] MEDS: FAMOTIDINE 20MG TAB 20 MG TAB PO SCH ×3 (08:51→20:08)
[2020-01-17] MEDS: ENOXAPARIN SODIUM 40 MG/0.4 ML SYRINGE SQ SCH ×2 (08:53→20:07)
[2020-01-17] MEDS: ATORVASTATIN CALCIUM 10 MG TABLET PO SCH (20:08)
[2020-01-18] MEDS: AZTREONAM 1 GM VIAL IVP SCH ×3 (03:22→19:44)
[2020-01-18] MEDS: LEVOTHYROXINE 25 MCG TABLET PO SCH ×2 (03:22→19:45)
[2020-01-18] MEDS: LORAZEPAM 2 MG/ML 1 ML VIAL IVP PRN ×2 (04:40→13:13)
[2020-01-18 05:40] VITALS: BP 119/89
[2020-01-18] MEDS: INSULIN HUMULIN R 100 UNIT/ML 3ML SQ SCH ×4 (05:52→20:27)
[2020-01-18 08:00] VITALS: BP 127/70
[2020-01-18] MEDS: ENOXAPARIN SODIUM 40 MG/0.4 ML SYRINGE SQ SCH ×2 (08:20→19:44)
[2020-01-18] MEDS: DOCUSATE SODIUM 100 MG CAP PO SCH ×2 (08:21→19:44)
[2020-01-18] MEDS: FAMOTIDINE 20MG TAB 20 MG TAB PO SCH ×2 (08:21→19:45)
--- NOTE | 2020-01-18 11:09 | NUR ---
RD FOLLOW UP Pt with Heart healthy Diet order in place. Pt with Poor PO intake at this time, BIPAP in place. RD notified by Pt services that Patient not receiving tray. Trays to isolation unit never left the delivery cart. RD spoke with previous nurse and informed of Poor PO intake, Current nurse unavailable. Monitored labs: WBC 17.9, Na 154, Cl 115, BUN 72, GFR 35, Alk 145, Alb 2.0. Comfort medications in place as per EMR. Pt with metastatic disease and Pt is positive for COVID. Pt previously agreed to Ensure nutritional supplement. Recommend Full Liquid Diet order with Ensure (TID) and 60mL ProMod (BID) supplementation in place, between meals while Pt is on BIPAP. If PO intake of liquids does not improve, recommend alternate means nutrition as medically feasible. RD to continue to monitor. Please notify as additional nutrition concerns arise. Thank you. Addendum: 01/18/20 at [address] Amended: Links added. Addendum: 01/18/20 at [address] ADDENDUM RD TO CONTINUE TO MONITOR PATIENT WITH WEIGHT LOSS AND DECREASED PO STATUS. PATIENT WITH MODERATE PROTEIN CALORIE MALNUTRITION. RECOMMEND 1000MG VITAMIN C DAILY.
[2020-01-18 12:00] VITALS: BP 132/72
[2020-01-18 16:00] VITALS: BP 118/61
[2020-01-18] MEDS: ATORVASTATIN CALCIUM 10 MG TABLET PO SCH (19:44)
[2020-01-18 20:00] VITALS: BP 125/68
[2020-01-18 23:50] VITALS: BP 119/69
[2020-01-19 04:01] VITALS: BP 126/73
[2020-01-19] MEDS: INSULIN HUMULIN R 100 UNIT/ML 3ML SQ SCH ×2 (06:37→11:28)
[2020-01-19 08:00] VITALS: BP 90/47
[2020-01-19] MEDS: FAMOTIDINE 20MG TAB 20 MG TAB PO SCH (09:00)
[2020-01-19] MEDS: DOCUSATE SODIUM 100 MG CAP PO SCH (09:00)
[2020-01-19] MEDS: ENOXAPARIN SODIUM 40 MG/0.4 ML SYRINGE SQ SCH (10:58)
[2020-01-19 11:29] VITALS: BP 84/55
[2020-01-19] MEDS: LORAZEPAM 2 MG/ML 1 ML VIAL IVP PRN (11:29)
[2020-01-19] MEDS ORDERED: DEXTROSE 5%-WATER 1,000 ML IV SCH (13:30)
--- NOTE | 2020-01-19 15:48 | NUR ---
Contacted by pts son asking questions about whether his mom is able to come home, get a PEG tube, whether she is COVID positive, and if she could possibly get better. Son was reminded that he spoke w/ the ROCIO Connor earlier this morning, in regards to his mothers decline and whether he would like comfort measures, since his mother previously signed a DNR/DNI; this nurse informed the son I would contact ROCIO Connor and inform her of his concerns and have her contact him to clarify. Contacted [facility] at 3pm and left message for ROCIO Connor to contact this nurse at [phone] in regards to the info above. Received call back at approx 303pm and informed CMM PROGRAMMER of son's concerns and let her know the pt O2sat was no longer registering, hands were cold, and that her feet were cold and her toes were turning purple, and that a new IV was inserted in order to start the new order for D5 at 75 ml/hrs. CMM PROGRAMMER informed this nurse pt is a DNR so no further action required and she would contact the son. Received a call back from CMM PROGRAMMER at [phone] and CMM PROGRAMMER stated she spoke w/ the son, hospice is not a option due to pt being on bipap, son wants everything to continue as is, the pt would possibly be started on TPN, and that the son will be getting a new phone number. Will continue to monitor.
== END 2020-01-19 17:37 | disposition expired | DRG 177 ==
LOC: EDH 11:16 → EDHIP 13:00 → 2AH 15:28
PROVIDERS: ADMIT Internal Medicine Critical Care Medicine; ATTEND Internal Medicine Critical Care Medicine
PROC: XW13325 Transfusion of Convalescent Plasma (Nonautologous) into Peripheral Vein, Percutaneous Approach, New Technology Group 5 (ICD-10-PCS; principal; 2020-01-05)
PROC: 5A09357 Assistance with Respiratory Ventilation, Less than 24 Consecutive Hours, Continuous Positive Airway Pressure (ICD-10-PCS; 2020-01-16)
PROC: 5A09357 Assistance with Respiratory Ventilation, Less than 24 Consecutive Hours, Continuous Positive Airway Pressure (ICD-10-PCS; 2020-01-17)
PROC: 5A09357 Assistance with Respiratory Ventilation, Less than 24 Consecutive Hours, Continuous Positive Airway Pressure (ICD-10-PCS; 2020-01-18)
DX: U07.1 COVID-19 (principal); J96.01 Acute respiratory failure with hypoxia; J12.89 Other viral pneumonia; J44.1 Chronic obstructive pulmonary disease with (acute) exacerbation; C34.90 Malignant neoplasm of unspecified part of unspecified bronchus or lung; J44.0 Chronic obstructive pulmonary disease with (acute) lower respiratory infection; C34.12 Malignant neoplasm of upper lobe, left bronchus or lung; E86.0 Dehydration; I12.9 Hypertensive chronic kidney disease with stage 1 through stage 4 chronic kidney disease, or unspecified chronic kidney disease; Z66 Do not resuscitate; I25.10 Atherosclerotic heart disease of native coronary artery without angina pectoris; D64.9 Anemia, unspecified; E03.9 Hypothyroidism, unspecified; N18.9 Chronic kidney disease, unspecified; Z20.828 Contact with and (suspected) exposure to other viral communicable diseases; Z80.0 Family history of malignant neoplasm of digestive organs; Z87.891 Personal history of nicotine dependence; Z88.0 Allergy status to penicillin
CPT/HCPCS: 36415; 36430; 36600; 71045; 71275; 80048; 80053; 80076; 82550; 82728; 82803; 82948; 83605; 83735; 83880; 84100; 84145; 84484; 85025; 85378; 85610; 85730; 86140; 86850; 86900; 86901; 86927; 87040; 87426; 93005; 93970; 94660; 97039; G0378; J1100; J1650; J1815; J1940; J2060; J3370; J3490; J7030; J7050; J7070; Q9967